=== PATIENT | male | born 1995 | race African-American/Black ===

== ENCOUNTER 2017-06-08 01:48 | Emergency (ER) | payer OTHER ==
[2017-06-08 02:07] VITALS: BP 128/48
--- NOTE | 2017-06-08 02:19 | ED Physician Documentation ---
Sore Throat/Dental Pain - HISTORIAN Historian: patient - HPI Stated Complaint: sore throat Chief Complaint: Sore Throat Onset: days ago (yesterday) Further Comments: yes (Ekaterina states that he started to have some white spots in his throat. Has recently finished antibiotic for a swollen lymphnode in the groin area. This is better. Patient denies any STD or oral sex. No exsposure to strep or mon.) - ROS CONST: recent illness - PAST HX Past History: none Other History: none Immunizations: referred to PCP Allergies/Adverse Reactions: Allergies Allergy/AdvReac Type Severity Reaction Status Date / Time No Known Allergies Allergy Verified 06/08/17 02:29 Home Medications: Ambulatory Orders Medication Instructions Recorded Azithromycin [Zithromax] 250 mg PO QD #4 tablet 06/08/17 NK [NK] 06/08/17 - SOCIAL HX Smoking History: less than 1 pack/day Alcohol Use: rarely Drug Use: marijuana - FAMILY HX Family History: No - VITAL SIGNS Vital Signs: Vital Signs Temp Pulse Resp BP Pulse Ox 98.7 F 51 L 16 128/48 98 06/08/17 01:49 06/08/17 01:49 06/08/17 01:49 06/08/17 01:49 06/08/17 01:49 - REVIEWED ASSESSMENTS Nursing Assessment Reviewed: Yes Vitals Reviewed: Yes ED Results Lab/Radiology - Orders Orders: ED Orders Category Date Time Status Rapid Strep [GRP A STREP SCREEN] Routine Lab 06/08/17 Ordered Azithromycin [Zithromax] Med 06/08/17 02:27 Discontinued 500 mg PO NOW ONE Sore throat Physical Exam - EXAM General Appearance: no acute distress, alert Mouth/Throat: lips nml, gums nml, pharynx nml, voice nml, membranes nml, pharyngeal erythema, tonsillar exudate, tonsillar swelling (mild) Ear/Nose: nml inspection Respiratory: no resp. distress, breath sounds nml, respiratory distress CVS: reg. rate & rhythm, heart sounds nml Skin: warm/dry, normal color Neuro/Psych: oriented x3, mood/affect nml Discharge Clincal Impression: Pharyngitis Prescriptions: Azithromycin [Zithromax] 250 mg PO QD #4 tablet Referrals: Kiesha Medel MD [Primary Care Provider] - 2 Days Home Medications: Ambulatory Orders Azithromycin [Zithromax] 250 mg PO QD #4 tablet 06/08/17 NK [NK] 06/08/17 Condition: Good Disposition: 01 HOME, SELF-CARE Decision to Admit: NO Date of Decison to Admit: 06/08/17 Decision Time: 02:25
[2017-06-08] MEDS ORDERED: AZITHROMYCIN 250 MG TABLET PO ONE (02:27)
== END 2017-06-08 02:37 | disposition home or self-care (01) ==
LOC: ED 01:48
DX: J02.9 Acute pharyngitis, unspecified (principal)
CPT/HCPCS: 87070; 87880; 99283